=== PATIENT | female | born 1965 ===

== ENCOUNTER 2017-12-04 11:01 | Emergency (ER) | payer OTHER ==
[~2017-12-04] VITALS: Ht 149.9 cm; Wt 55.3 kg
[2017-12-04] MEDS ORDERED: ZANTAC150 MG PO (15:06)
[2017-12-04] MEDS ORDERED: INTESTINEX680 M1 PO (15:06)
[2017-12-04] MEDS ORDERED: FLAGYL500MG PO (15:06)
[2017-12-04] MEDS ORDERED: CIPRO500 MG PO (15:06)
== END 2017-12-04 18:44 | disposition home or self-care (01) ==
LOC: ER 11:01
DX: K52.9 Noninfective gastroenteritis and colitis, unspecified (principal)

== ENCOUNTER 2019-05-09 11:09 | Emergency (ER) | payer OTHER ==
[~2019-05-09] VITALS: Ht 149.9 cm; Wt 56.2 kg
[~2019-05-09 11:09] MED LIST: CIPRO500 MG PO; FLAGYL500MG PO; INTESTINEX680 M1 PO; ZANTAC150 MG PO
[2019-05-09] MEDS ORDERED: FOSAMAX70 MG PO (11:48)
[2019-05-09] MEDS ORDERED: VITAMIN B122500 MCG PO (11:49)
[2019-05-09] MEDS ORDERED: CALTRATE 600+D1 EACH PO (11:49)
[2019-05-09] MEDS ORDERED: VITAMIN D1000 UNIT PO (11:49)
[2019-05-09] MEDS ORDERED: NAPR500T14 PO (11:50)
== END 2019-05-09 12:41 | disposition home or self-care (01) ==
LOC: ER 11:09
DX: B02.9 Zoster without complications (principal)

== ENCOUNTER 2020-02-29 11:06 | Emergency (ER) | payer OTHER ==
[~2020-02-29] VITALS: Ht 149.9 cm; Wt 56.7 kg
[~2020-02-29 11:06] MED LIST changes: +CALTRATE 600+D1 EACH PO; +FOSAMAX70 MG PO; +NAPR500T14 PO; +VITAMIN B122500 MCG PO; +VITAMIN D1000 UNIT PO
== END 2020-02-29 15:28 | disposition home or self-care (01) ==
LOC: ER 11:06
DX: J03.90 Acute tonsillitis, unspecified (principal)

== ENCOUNTER → 2020-08-22 | Emergency (ER) | payer OTHER ==
[~2020-08-22] VITALS: Ht 149.9 cm; Wt 57.6 kg
[~2020-08-22] MED LIST changes: +TYLENOL
== END | disposition home or self-care (01) ==
LOC: ER 16:33
DX: S90.111A Contusion of right great toe without damage to nail, initial encounter (principal); S90.31XA Contusion of right foot, initial encounter; W22.8XXA Striking against or struck by other objects, initial encounter; Y93.89 Activity, other specified; Y92.89 Other specified places as the place of occurrence of the external cause; Y99.8 Other external cause status